=== PATIENT | male | born 1965 | race Caucasian/White ===

== ENCOUNTER 2025-01-28 10:57 | Emergency (ER) | payer BC, SELFPAY ==
--- OUTSIDE RECORDS SUMMARY | 2025-01-28 11:03 | XMS_ITS | Clinical Summary ---
Author Organization [facility] and [facility] Address [address] [place] [address] Care Team Providers Care Animal Scientist Name Role Phone Vilma Edgardo VILLALOBOS Primary Care Provider Unavailabl e Source Comments This information has been disclosed to you from records protected by Federal confidentiality rules (42 CFR part 2). The Federal rules prohibit you from making any further disclosure of this information unless further disclosure is expressly permitted by the written consent of the person to whom it pertains or as otherwise permitted by 42 CFR part 2. A general authorization for the release of medical or other information is NOT sufficient for this purpose. The Federal rules restrict any use of the information to criminally investigate or prosecute any alcohol or drug abuse patient.[facility] Allergies Active Allergy Reactions Criticality Noted Date Comments Raspberry Other High 10/06/2016 Severe hives Medications escitalopram (LEXAPRO) 20mg Tab 05/17/20 20 Active TESTOSTERONE IM Inject intramuscularly once weekly Active Active Problems Problem Noted Date Diagnosed Date Polymyalgia rheumatica 09/06/2020 Positive antinuclear antibody 09/06/2020 Left knee pain 01/19/2018 History of arthrodesis 01/19/2018 BMI 33.0-33.9,adult 01/19/2018 Resolved Problems Problem Noted Date Diagnosed Date Resolved Date Acute bronchitis 07/18/2017 08/23/2020 Right ankle pain 06/28/2012 07/18/2017 Family History Medical History Relation Comments Diabetes type II Father Heart Disease Father Kidney diseases Father Relation Status Comments Father Alive Social History Tobacco Use Types Packs/Day Years Used Date Smoking Tobacco: Never Smokeless Tobacco: Never Tobacco Cessation:Counseling Given: Not Answered Alcohol Use Standard Drinks/Week Comments Yes 0 (1 standard drink = 0.6 oz pur e alcohol) Rare AUDIT-C Answer Date Recorded Frequency of Alcohol Consumption Monthly or less 11/17/2019 Average Number of Drinks 1 or 2 020 Frequency of Binge Drinking Never 11/03 Core Social Determinants of Health Screening Que stions Answer Date Recorded Unable to Pay for Housing in the Last Year Not o n file 03/03/2023 [address] of Places Lived in the Last Year Not on f ile 03/03/2023 Unstable Housing in the Last Year Not on file 03/03/2023 Sex and Gender Information Value Date Recorded Sex Assigned at Not on file Legal Sex Male 10:58 AM PST Gender Identity Not on file Sexual Orientation Not on file Last Filed Vital Signs Vital Sign Reading Time Taken Comments Blood Pressure 113/75 01/06/2024 10:26 AM PDT Pulse 57 01/06/2024 10:26 AM PDT Temperature 36.6 C (97.9 F) 01/06/2024 10:26 AM PDT Respiratory Rate 20 01/06/2024 10:26 AM PDT Oxygen Saturation 100% 01/06/2024 10:26 AM PDT Inhaled Oxygen Concentration - - Weight 99.3 kg (219 lb) 01/06/2024 10:26 AM PDT Height 182.9 cm (6') 09/05/2020 9:16 AM PST Body Mass Index 29.7 09/05/2020 9:16 AM PST Plan of Treatment Health Maintenance Due Date Last Done Comments UNIVERSAL HIV SCREENING 12/29/1985 DTaP,Tdap,or Td Vaccine (1 - Tdap) 12/29/1986 HEPATITIS B VACCINE (1 of 3 - 19+ 3-dose series) 12/29/1986 MMR VACCINE ADULT 12/29/1986 COLORECTAL CANCER SCREENING DISCUSSION 12/29/2012 PNEUMOCOCCAL VACCINE 50+ YEA RS (1 of 1 - PCV) 12/29/2017 ZOSTER VACCINE (Shingrix w/w o Zostavax) (1 of 2) 12/29/2017 COVID-19 Vaccine ( - 2023-2 5 season) 2024 INFLUENZA VACCINE 04/05/2025 LIPID SCREENING 11/11/2027 11/10/2022, 11/15/2019 HEPATITIS C SCREENING Completed 11/10/2022 HEPATITIS A VACCINE Aged Out No longe r eligible based on patient's age to complete this topic HPV VACCINE Aged Out No longer eligi ble based on patient's age to complete this topic MENINGOCOCCAL ACWY VACCINE Aged Out N o longer eligible based on patient's age to complete this topic Insurance [facility] PPO POS EPO [facility] [employer] [id number] [employer] Care Teams Animal Scientist Relationship Specialty Start Date End Date Edgardo Esparza NP Generic PCP - General 05/29/20
--- OUTSIDE RECORDS SUMMARY | 2025-01-28 11:03 | XMS_ITS | Encounter Summary ---
Author Organization [facility] Address [address] [place] [address] Phone Care Team Providers Care Material Spreader Name Role Phone Esperanza Rinocn SONAR WATCHSTANDER Primary Care Provider [phone] Reason for Visit * Reason Comments Med Refill Encounter Details Date Type Department Care Team (Late st Contact Info) Description 10/20/2024 Refill [facility] [employer] [address] [phone] [place] [address] [place] [phone] Social History Tobacco Use Types Packs/Day Years Used Date Smoking Tobacco: Former Smokeless Tobacco: Never Sex and Gender Information Value Date Recorded Sex Assigned at Not on file Legal Sex Male 12:04 PM PDT Gender Identity Not on file Sexual Orientation Not on file documented as of this encounter Plan of Treatment Not on file documented as of this encounter Visit Diagnoses Not on filedocumented in this encounter Care Teams Material Spreader Relationship Specialty Start Date End Date Esperanza Rincon NP [address] [place] [phone] PCP - General Internal Medicine 06/05/20 documented as of this encounter
--- OUTSIDE RECORDS SUMMARY | 2025-01-28 11:03 | XMS_ITS | Continuity of Care Document ---
Author Organization [facility] Address [address] [place] [address] Phone Care Team Providers Care Mica Plate Layer Name Role Phone Esperanza Rincon NP Primary Care Provider [phone] Encounters Date Type Department Care Team Description 10/20/2024 [facility], [facility]. [facility] [employer] [address] [place] [address] [address] [place] [phone] Esperanza Rincon NP 09/21/2024 [facility], [facility]. [employer] [address] [place] [phone] Esperanza Rincon NP 08/21/2024 [facility], [facility]. [employer] [address] [place] [phone] Esperanza Rincon NP 11/05/2022 1:15 PM [facility]. A [employer] [address] [place] [phone] Esperanza Rincon NP Carpal tunnel syndrome, bilateral (Primary Dx); Reactive depression; Need for hepatitis C screening test; Other fatigue; Hypercholesteremia; Prostate cancer screening 11/05/2022 Travel 06/13/2022 [facility], [facility]. A [employer] [address] [place] [phone] Esperanza Rincon NP 05/13/2022 [facility]. A [employer] [address] [place] [phone] Esperanza Rincon NP Pt need advise 03/09/2022 [facility], [facility]. A Medical [address] [place] [phone] Esperanza Rincon NP 12/10/2021 Travel 12/10/2021 3:15 PM [facility] A Medical [address] [place] [phone] Esperanza Rincon NP COVID-19 (Primary Dx); Reactive depression 11/18/2020 [facility], [employer]. Medical [address] [place] [phone] Esperanza Rincon NP 06/27/2020 [facility], [employer]. A Medical [address] [place] [phone] Provider, Historical 06/25/2020 [facility], [employer]. A Medical [address] [place] [phone] Esperanza Rincon NP Need treatment plan 06/22/2020 [facility], [employer]. Medical [address] [place] [phone] Esperanza Rincon NP 06/22/2020 [facility] Medical [address] [place] [phone] Esperanza Rincon NP 06/21/2020 [facility] A Medical [address] [place] [phone] Esperanza Rincon NP 06/21/2020 [facility], [employer]. Medical [address] [place] [phone] Esperanza Rincon NP treatment plan needed 06/19/2020 [facility], [employer]. Medical [address] [place] [phone] Esperanza Rincon NP 06/18/2020 [facility], [employer]. A Medical [address] [place] [phone] Esperanza Rincon NP 06/15/2020 [facility] [employer]. A [address] [place] [phone] Esperanza Rincon NP 06/15/2020 Travel 06/15/2020 10:15 AM PST Office Visit [place] [employer]. [address] [place] [phone] Esperanza Rincon NP Polyarthritis (Primary Dx); BMI 31.0-31.9,adult 06/12/2020 Travel 05/28/2020 Travel 05/25/2020 Travel 11/15/2019 [facility] [employer]. [address] [place] [phone] Esperanza Rincon NP 11/15/2019 Travel 11/15/2019 9:45 AM PDT Office [facility] [employer]. [address] [place] [phone] Esperanza Rincon NP Hypercholesteremia (Primary Dx); Prostate cancer screening; Other fatigue; Impaired glucose tolerance; Umbilical hernia without obstruction and without gangrene; Reactive depression; Colon cancer screening; Right foot pain 11/08/2019 Travel 08/17/2019 [facility] [employer]. A [address] [place] [phone] Mariana Castro MA 02/27/2019 [facility] [employer]. [address] [place] [phone] Joradn Rust MD 01/26/2018 9:30 AM PDT Office [facility] [employer]. [address] [phone] Jordan Rust MD Acute pain of left knee (Primary Dx); Reactive depression 01/25/2018 [facility] [employer]. [address] [place] [phone] Esperanza Rincon NP 01/12/2018 [facility] [employer]. A [employer] [address] [facility] [address] [place] [address] Kenzie Mooney MD 04/06/2017 Procedure Only, [facility] [employer]. [facility] [employer] [address] [place] [address] 03/13/2017 Office Visit, [facility] [employer]. [employer] [address] [facility] [address] [place] [address] Kenzie Mooney MD 12/12/2016 Office Visit, [facility] [employer]. [employer] [address] [facility] [address] [place] [phone] Esperanza Rincon NP Allergies Active Allergy Reactions Criticality Noted Date Comments Dominguezpberry High 10/06/2016 Other reaction(s): Other Severe hives Medications testosterone cypionate (DEPO-TESTOTERON E) 100 mg/mL injection every 14 (fourteen) days. Active escitalopram (LEXAPRO) 20 mg tablet TAKE 1 TABLET(20 MG) BY MOUTH DAILY 30 tablet 09/21/2024 Active Active Problems Problem Noted Date Diagnosed Date Polymyalgia rheumatica 09/06/2020 Positive antinuclear antibody 09/06/2020 Inflammatory polyarthropathy 08/06/202009/2022 Acute pain of left knee 01/26/2018 Assessment & Plan (01/26/2018 12:41 PM PDT): Patient of Dr. Dmitry Mooney Hurt left knee injury in October and workmans comp declined to be involved . He saw orthopedist in [place] and MRI pending. 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 Has to walk up 5-6 steps to [place]man. Kneeling and twisting is involved. Trying to get bye until pain got worse a week ago and now wants to get on disability. Knee feels tight even without wt bearing, Moans and groans at night. Worse with wt bearing medial knee, swells and gets stiff medial knee. Was going through parking lot at [employer] and tripped in the parking lot and twisted his knee and painful since then. Taking ibuprofen 800mg prn with some relief. Here to get disabilty started Advised to file online for state disability and to get disability paper through work and also to get orthopedist involed Reactive depression 01/26/2018 Assessment & Plan (01/26/2018 9:52 AM PDT): Was on lexapro 10mg and seemed to be helping per but out for several months. Did help his anger issues. Wants to restart. Refill 20mg daily History of arthrodesis 01/19/2018 Decreased testosterone level 12/12/2016 Social History Smoking Status as of 01/28/2025 Tobacco Use Types Packs/Day Years Used Date Smoking Tobacco: Never Assessed Sex and Gender Information Value Date Recorded Sex Assigned at Not on file Legal Sex Male 12:04 PM PDT Gender Identity Not on file Sexual Orientation Not on file Last Filed Vital Signs Vital Sign Reading Time Taken Comments Blood Pressure 118/62 06/15/2020 9:41 AM PST Pulse 76 06/15/2020 9:41 AM PST Temperature 36.4 C (97.5 F) 06/15/2020 9:41 AM PST Respiratory Rate - - Oxygen Saturation 97% 06/15/2020 9:41 AM PST Inhaled Oxygen Concentration - - Weight 99.8 kg (220 lb) 06/15/2020 9:41 AM PST Height 177.8 cm (5' 10) 06/15/2020 9:41 AM PST Body Mass Index 31.57 06/15/2020 9:41 AM PST Plan of Treatment Not on file Procedures Procedure Name Priority Date/Time Associated Diagnosis Comments TSH, W RFLX ON ABNORMAL TO FREE T4 Routine 11/10/2022 12:58 PM PDT Reactive depression Other fatigue PSA Routine 11/10/2022 12:58 PM PDT Prostate cancer screening LDL CHOLESTEROL, DIRECT Routine 11/10/2022 12:58 PM PDT Hypercholesteremia LIPID PANEL (NON-FASTING) Routine 11/10/2022 12:58 PM PDT Hypercholesteremia COMPREHENSIVE METABOLIC PANEL (14) Routine 11/10/2022 12:58 PM PDT Hypercholesteremia CBC Routine 11/10/2022 12:58 PM PDT Other fatigue HEPATITIS C AB W RFLX TO HCV RNA, QUANT, PCR Routine 11/10/2022 12:58 PM PDT Need for hepatitis C screening test CHRISTIE TITER AND PATTERN Routine 06/18/2020 10:11 AM PST COMPREHENSIVE METABOLIC PANEL (14) Routine 06/18/2020 10:11 AM PST Polyarthritis CBC (INCLUDES DIFF/PLT) Routine 06/18/2020 10:11 AM PST Polyarthritis CHRISTIE + RF + CCP (IGG) Routine 06/18/2020 10:11 AM PST Polyarthritis LYME DISEASE AB (IGG & IGM), WESTERN BLOT Routine 06/18/2020 10:11 AM PST Polyarthritis C-REACTIVE PROTEIN Routine 06/18/2020 10 :11 AM PST Polyarthritis SEDIMENTATION RATE, AUTOMATED Routine 06/18/2020 10:11 AM PST Polyarthritis CHRISTIE SCREEN W CASCADING RFLX Routine 06/18/2020 10:11 AM PST Polyarthritis URIC ACID Routine 06/18/2020 10:09 AM PST Polyarthritis LAB SCANNED RESULT Routine 06/18/2020 LAB SCANNED RESULT Routine 06/18/2020 LAB SCANNED RESULT Routine 06/18/2020 SARS-COV-2 RNA (COVID-19), QUALITATIVE NAAT Routine 06/15/2020 10:24 AM PST Polyarthritis LAB SCANNED RESULT Routine 06/15/2020 HEMOGLOBIN A1C W MPG Routine 11/15/2019 10:15 AM PDT PSA Routine 11/15/2019 10:15 AM PDT Prostate cancer screening LIPID PANEL (NON-FASTING) Routine 11/15/2019 10:15 AM PDT Hypercholesteremia COMPREHENSIVE METABOLIC PANEL (14) Routine 11/15/2019 10:15 AM PDT Hypercholesteremia CBC Routine 11/15/2019 10:15 AM PDT Other fatigue Results * (ABNORMAL) Lipid Panel (Non-Fasting) (11/10/2022 12:58 PM PDT) Only the most recent of2 resultswithin the time period is included. Cholesterol, Total 252(H) <200 mg/dL [facility] [place] HDL 41 > OR = 40 mg/dL [facility] [place] Chol/HDL Ratio 6.1(H) <5.0 (calc) [facility] [place] Non HDL Chol. (LDL+VLDL) 211(H) <130 mg/dL (calc) [facility] [place] Comment: For patients with diabetes plus 1 major ASCVD risk factor, treating to a non-HDL-C goal of <100 mg/dL (LDL-C of <70 mg/dL) is considered a therapeutic option. 11/10/2022 12:5 8 PM PDT 11/10/2022 12:58 PM PDT Narrative [facility] - 11/11/2022 12:17 PM PDT FASTING:NO FASTING: NO Esperanza Rincon ORTHOTIC/PROSTHETIC PRACTITIONER LAB BLOOD ORDERABLES Final Resul t [facility] [address] [place] [address] * Hepatitis C Ab w rflx to Quant PCR (11/10/2022 12:58 PM PDT) Pathologist [facility] HCV Ab NON-REACTI VE NON-REACT NAOMIE [facility] [place] Hepatitis C Virus Ab Signal To Cut-Off 0.09 <1.00 [facility] [place] [facility] [place] Comment: HCV antibody was non-reactive. There is no laboratory evidence of HCV infection. In most cases, no further action is required. However, if recent HCV exposure is suspected, a test for HCV RNA (test code 72668) is suggested. For additional information please refer to http://Number 100.[employer]/faq/RUZ89y5 (This link is being provided for informational/ educational purposes only.) 11/10/2022 12:5 8 PM PDT 11/10/2022 12:58 PM PDT Narrative [facility] - 11/11/2022 12:17 PM PDT FASTING:NO FASTING: NO Esperanza Rincon LAB BLOOD ORDERABLES Final Resul t Performing Organization Address City/[facility]/ZIP Co de Phone Number [facility] [id number] [phone] * TSH, w rflx to Free T4 (11/10/2022 12:58 PM PDT) Pathologist [facility] TSH 0.89 0.40 - 4.50 mIU/L [facility] 11/10/2022 12:5 8 PM PDT 11/10/2022 12:58 PM PDT Narrative [facility] - 11/11/2022 12:17 PM PDT FASTING:NO FASTING: NO Esperanza Rincon NP LAB BLOOD ORDERABLES Final Resul t Performing Organization Address City/[facility]/ZIP Co de Phone Number [facility] [id number] [phone] * CBC (11/10/2022 12:58 PM PDT) Only the most recent of2 resultswithin the time period is included. WBC 5.5 3.8 - 10.8 Thousand/uL [facility] RBC 5.32 4.20 - 5.80 Million/uL [employer] [facility] Hgb 16.9 13.2 - 17.1 g/dL [facility] [place] Hct 48.9 38.5 - 50.0 % [facility] [place] MCV 91.9 80.0 - 100.0 fL [facility] [place] MCH 31.8 27.0 - 33.0 pg [facility] [place] MCHC 34.6 32.0 - 36.0 g/dL [facility] [place] RDW 12.6 11.0 - 15.0 % [facility] [place] Plt 260 140 - 400 Thousand/uL [facility] [place] MPV 9.2 7.5 - 12.[address] [facility] [place] Blood specimen (specimen) Venous blood specimen / Unknown 11/10/2022 12:58 PM PDT 11/10/2022 12:58 PM PDT [facility] 11/11/2022 12:17 PM PDT FASTING:NO FASTING: NO Esperanza Rincon NP LAB BLOOD ORDERABLES Final Resul t STEPHANIE [facility] [address] [place] [address] * PSA (11/10/2022 12:58 PM PDT) Only the most recent of2 resultswithin the time period is included. PSA 0.53 < OR = 4.00 ng/mL [facility] [place] [facility] [place] Comment: The total PSA value from this assay system is standardized against the WHO standard. The test result will be approximately 20% lower when compared to the equimolar-standardized total PSA (Abdulaziz Franklyn). Comparison of serial PSA results should be interpreted with this fact in mind. This test was performed using the Siemens chemiluminescent method. Values obtained from different assay methods cannot be used interchangeably. PSA levels, regardless of value, should not be interpreted as absolute evidence of the presence or absence of disease. Blood specimen (specimen) Venous blood specimen / Unknown 11/10/2022 12:58 PM PDT 11/10/2022 12:58 PM PDT Narrative [facility] - 11/11/2022 12:17 PM PDT FASTING:NO FASTING: NO Esperanza Rincon LAB BLOOD ORDERABLES Final Resul t Performing Organization Address [facility] Co de Phone Number [facility] [address] [place] [phone] * (ABNORMAL) LDL Cholesterol, Direct (11/10/2022 12:58 PM PDT) LDL Direct 172(H) <100 mg/dL [facility] Comment: Greatly elevated Triglycerides values (>1200 mg/dL) interfere with the dLDL assay. As no Triglycerides testing was ordered, interpret results with caution. Desirable range <100 mg/dL for primary prevention; <70 mg/dL for patients with CHD or diabetic patients with > or = 2 CHD risk factors. Blood specimen (specimen) Venous blood specimen / Unknown 11/10/2022 12:58 PM PDT 11/10/2022 12:58 PM PDT Narrative [facility] - 11/11/2022 12:17 PM PDT FASTING:NO FASTING: NO Esperanza Rincon NP LAB BLOOD ORDERABLES Final Resul t Performing Organization Address [facility] Co de Phone Number [employer] [address] * Comprehensive metabolic panel (11/10/2022 12:58 PM PDT) Only the most recent of3 resultswithin the time period is included. Glucose 83 65 - 139 mg/dL [facility] Comment: Non-fasting reference interval BUN 17 7 - 25 mg/dL [facility] Creatinine, Ser 1.23 0.70 - 1.30 mg/dL [facility] eGFR 70 > OR = 60 mL/min/1. 73m2 [facility] Comment: The eGFR is based on the CKD-EPI 2020 equation. To calculate the new eGFR from a previous Creatinine or Cystatin C result, go to https://www.kidney.org/professionals/ kdoqi/gfr%5Fcalculator BUN/Creatinine Ratio NOT APPLICABLE 6 - 22 (calc) [facility] [place] Sodium 139 135 - 146 mmol/L [facility] [place] Potassium 4.2 3.5 - 5.3 mmol/L [facility] [place] Chloride 103 98 - 110 mmol/L [facility] [place] CO2 28 20 - 32 mmol/L [facility] [place] Calcium 9.9 8.6 - 10.3 mg/dL [facility] [place] [facility] [place] Protein, Total 6.8 6.1 - 8.1 g/dL [facility] [place] Albumin 4.7 3.6 - 5.1 g/dL [facility] [place] Globulin, Total 2.1 1.9 - 3.7 g/dL (calc) [facility] [place] A/G Ratio 2.2 1.0 - 2.5 (calc) [facility] [place] [facility] [place] Total Bilirubin 0.5 0.2 - 1.2 mg/dL [facility] [place] Alk Phos 81 35 - 144 U/L [facility] [place] [facility] [place] AST 22 10 - 35 U/L [facility] [place] ALT (SGPT) 27 9 - 46 U/L [facility] [place] [facility] [place] Blood specimen (specimen) Venous blood specimen / Unknown 11/10/2022 12:58 PM PDT 11/10/2022 12:58 PM PDT Narrative [facility] - 11/11/2022 12:17 PM PDT FASTING:NO FASTING: NO us Esperanza Rincon NP LAB BLOOD ORDERABLES Final Resul t [facility] [employer] [facility] [place] [address] [place] [address] * (ABNORMAL) CHRISTIE + RF + CCP IgG (06/18/2020 10:11 AM PST) CHRSITIE POSITIVE( A) NEGATIVE [facility] Comment: CHRISTIE IFA is a first line screen for detecting the presence of up to approximately 150 autoantibodies in various autoimmune diseases. A positive CHRISTIE IFA result is suggestive of autoimmune disease and reflexes to titer and pattern. Further laboratory testing may be considered if clinically indicated. For additional information, please refer to http://education.Fashionspace/faq/EIN855 (This link is being provided for informational/ educational purposes only.) Rheumatoid Factor <14 <14 IU/mL [facility] CCP IgG <16 UNITS [facility] Comment: Reference Range Negative: <20 Weak Positive: 20-39 Moderate Positive: 40-59 Strong Positive: >59 Interpretation [facility] Comment: A positive CHRISTIE, IFA indicates that one or more antibodies associated with connective tissue disease could be positive. The RF and CCP assays are each 65-70% sensitive for established rheumatoid arthritis. While it is still possible that this patient has rheumatoid arthritis, other connective tissue diseases should be considered. 06/18/2020 10:1 1 AM PST 06/18/2020 10:12 AM PST Esperanza Rincon NP LAB BLOOD ORDERABLES Final Resul t [facility] [address] [place] [address] * (ABNORMAL) CHRISTIE titer and pattern (06/18/2020 10:11 AM PST) CHRISTIE Titer 1 1:40(H) titer [facility] Comment: A low level CHRISTIE titer may be present in pre-clinical autoimmune diseases and normal individuals. Reference Range <1:40 Negative 1:40-1:80 Low Antibody Level >1:80 Elevated Antibody Level CHRISTIE Pattern 1 Nuclear, Dense Fine Speckled(A ) [facility] Comment: Dense fine speckled pattern is seen in normal individuals and rarely associated with systemic lupus erythematosis (SLE), Sjogren's syndrome and systemic sclerosis. AC-2: Dense Fine Speckled International Consensus on CHRISTIE Patterns (https://doi.org/10.1515/tqvg-2919-3584) 06/18/2020 10:1 1 AM PST 06/18/2020 10:12 AM PST Esperanza Rincon NP LAB BLOOD ORDERABLES Final Resul t Performing Organization Address [facility] Co de Phone Number [facility] [address] [place] [address] * CHRISTIE Screen w Cascading Rflx (06/18/2020 10:11 AM PST) CHRISTIE (CHOICE) NEGATIVE NEGATIVE [facility] Comment: A negative CHRISTIE Multiplex, with Reflex to 11 Antibody [place] indicates the absence of detectable antibodies to component analytes consisting of double stranded DNA (dsDNA), chromatin, ribonucleoprotein (MANUFACTURING TECHNOLOGIST), [place]/MANUFACTURING TECHNOLOGIST (Sm/MANUFACTURING TECHNOLOGIST), [place] (Sm), SS-A, SS-B, Adelaida-1, centromere B, Scl-70 and ribosomal P. A negative result should be interpreted in the context of the clinical and laboratory findings and does not rule out autoimmune disease characterized by other autoantibody specificities such as rheumatoid arthritis, autoimmune hepatitis, primary biliary cirrhosis, autoimmune thyroiditis, Raj's disease, pernicious anemia, autoimmune neuropathies, vasculitis, celiac disease, and bullous disease. For additional information, please refer to http://education.Fashionspace/faq/TOR380 (This link is being provided for informational/ educational purposes only.) Blood specimen (specimen) Venous blood specimen / Unknown 06/18/2020 10:11 AM PST 06/18/2020 10:12 AM PST Esperanza Rincon NP LAB BLOOD ORDERABLES Final Resul t Performing Organization Address [facility] Co de Phone Number [facility] [address] [place] [address] * Lyme Disease Ab (IgG & IgM), WB (06/18/2020 10:11 AM PST) Lyme Ab IgG by WB NEGATIVE [facility] Lyme 18 kD IgG NON-REACTIVE [facility] Lyme 23 kD IgG NON-REACTIVE [facility] Lyme 28 kD IgG NON-REACTIVE [facility] Lyme 30 kD IgG NON-REACTIVE [facility] Lyme 39 kD IgG NON-REACTIVE [facility] Lyme 41 kD IgG REACTIVE [facility] Lyme 45 kD IgG NON-REACTIVE [facility] Lyme 58 kD IgG NON-REACTIVE [facility] Lyme 66 kD IgG NON-REACTIVE [facility] Lyme 93 kD IgG NON-REACTIVE [facility] Comment: Lyme Ab IgM by WB NEGATIVE [facility] Lyme 23 kD IgM NON-REACTIVE [facility] Lyme 39 kD IgM REACTIVE [facility] Lyme 41 kD IgM NON-REACTIVE [facility] Comment: REFERENCE RANGE: NEGATIVE Lyme immunoblot testing should only be performed on samples from patients who have had a Positive or Equivocal result in a screening assay. As per CDC criteria, a Lyme disease IgG immunoblot must show reactivity to at least 5 of 10 specific borrelial proteins to be considered positive; similarly, a positive Lyme disease IgM immunoblot requires reactivity to 2 of 3 specific borrelial proteins. Although considered negative, IgG reactivity to fewer specific borrelial proteins or IgM reactivity to only 1 protein may indicate recent B. burgdorferi infection and warrant testing of a later sample. A positive IgM but negative IgG result obtained more than a month after onset of symptoms likely represents a false-positive IgM result rather than acute Lyme disease. In rare instances, Lyme disease immunoblot reactivity may represent antibodies induced by exposure to other spirochetes. Your request to have a duplicate copy faxed has been acknowledged. Queued to: Blood specimen (specimen) Venous blood specimen / Unknown 06/18/2020 10:11 AM PST 06/18/2020 10:12 AM PST Esperanza Rincon NP LAB BLOOD ORDERABLES Final Resul t [facility] [address] [facility] [place] [facility] [place] [address] * Sedimentation Rate, W[place]gren (06/18/2020 10:11 AM PST) ESR, Montserratren 17 < OR = 20 mm/h [facility] [place] Blood specimen (specimen) Venous blood specimen / Unknown 06/18/2020 10:11 AM PST 06/18/2020 10:12 AM PST Esperanza Rincon ORTHOTIC/PROSTHETIC PRACTITIONER LAB BLOOD ORDERABLES Final Resul t [facility] [address] [place] [address] * CBC and diff/platelets (06/18/2020 10:11 AM PST) WBC 9.7 3.8 - 10.8 Thousand/u L [facility] [place] RBC 5.00 4.20 - 5.80 Million/uL [facility] [place] Hgb 15.0 13.2 - 17.1 g/dL [facility] [place] Hct 45.1 38.5 - 50.0 % [facility] [place] MCV 90.2 80.0 - 100.0 fL [facility] [place] MCH 30.0 27.0 - 33.0 pg [facility] [place] MCHC 33.3 32.0 - 36.0 g/dL [facility] [place] RDW 11.5 11.0 - 15.0 % [facility] [place] Plt 349 140 - 400 Thousand/u L [facility] [place] MPV 8.7 7.5 - 12.5 fL [facility] [place] Neutrophil# 6,441 1,500 - 7,800 cells/uL [facility] [place] Lymphocytes Absolute 2,270 850 - 3,900 cells/uL [facility] [place] Monos# 757 200 - 950 cells/uL [facility] [place] Eos# 184 15 - 500 cells/uL [facility] [place] Basos# 49 0 - 200 cells/uL [facility] [place] Neutrophils% 66.4 % [facility] [place] Lymphs% 23.4 % [facility] [place] Monocytes Relative 7.8 % [facility] [place] Eos% 1.9 % [facility] [place] Basos% 0.5 % [facility] [place] Blood specimen (specimen) Venous blood specimen / Unknown 06/18/2020 10:11 AM PST 06/18/2020 10:12 AM PST Esperanza Rincon ORTHOTIC/PROSTHETIC PRACTITIONER LAB BLOOD ORDERABLES Final Resul t [facility] [address] [address] * (ABNORMAL) C-Reactive Protein (06/18/2020 10:11 AM PST) CRP 31.6(H) <8.0 mg/L [facility] Blood specimen (specimen) Venous blood specimen / Unknown 06/18/2020 10:11 AM PST 06/18/2020 10:12 AM PST Esperanza Rincon ORTHOTIC/PROSTHETIC PRACTITIONER LAB BLOOD ORDERABLES Final Resul t [facility] [place] [address] [place] [address] * Uric Acid (06/18/2020 10:09 AM PST) Uric Acid 5.6 4.0 - 8.0 mg/dL [facility] [place] Comment: Therapeutic target for gout patients: <6.0 mg/dL Blood specimen (specimen) Venous blood specimen / Unknown 06/18/2020 10:09 AM PST 06/18/2020 10:10 AM PST Esperanza Lumajosé ORTHOTIC/PROSTHETIC PRACTITIONER LAB BLOOD ORDERABLES Final Resul t [facility] [address] [place] [address] * Lab Scanned Report (06/18/2020) Only the most recent of4 resultswithin the time period is included. Historical Provider LAB BLOOD ORDERABLES Final R esult * SARS-CoV-2 RNA (COVID-19), QUALITATIVE NAAT (06/15/2020 10:24 AM PST) SARS COV 2 RNA NOT DETECTED [facility] Comment: A Not Detected (negative) test result for this test means that SARS-CoV-2 RNA was not present in the specimen above the limit of detection. A negative result does not rule out the possibility of COVID-19 and should not be used as the sole basis for treatment or patient management decisions. If COVID-19 is still suspected, based on exposure history together with other clinical findings, re-testing should be considered in consultation with public health authorities. Laboratory test results should always be considered in the context of clinical observations and epidemiological data in making a final diagnosis and patient management decisions. REFERENCE RANGE: NOT DETECTED Please review the Fact Sheets and FDA authorized labeling available for health care providers and patients using the following websites: https://www.CloudTags.com/home/ Covid-19/HCP/[facility]/fact-sheet https://www.CloudTags.Stylewhile/home/ Covid-19/Patients/[facility]/fact-sheet.html This test has been authorized by the FDA under an Emergency Use Authorization (EUA) for use by authorized laboratories Due to the current public health emergency, [facility] is receiving a high volume of samples from a wide variety of swabs and media for COVID-19 testing. In order to serve patients during this public health crisis, samples from appropriate clinical sources are being tested. Negative test results derived from specimens received in non-commercially manufactured viral collection and transport media, or in media and sample collection kits not yet authorized by FDA for COVID-19 testing should be cautiously evaluated and the patient potentially subjected to extra precautions such as additional clinical monitoring, including collection of an additional specimen. Methodology: Nucleic Acid Amplification Test (NAAT) includes RT-PCR or TMA Additional information about COVID-19 can be found at the [facility] website: www.Burstly.Stylewhile/Covid19 Swab (specimen) 06/15/2020 1 0:24 AM PST 06/16/2020 3:22 AM PST Esperanza Rincon NP LAB BLOOD ORDERABLES Final Resul t [facility] [address] [place] [phone] * Hemoglobin A1c w MPG (11/15/2019 10:15 AM PDT) Hgb A1C 5.0 <5.7 % of total Hgb [facility] Comment: For the purpose of screening for the presence of diabetes: <5.7% Consistent with the absence of diabetes 5.7-6.4% Consistent with increased risk for diabetes (prediabetes) > or =6.5% Consistent with diabetes This assay result is consistent with a decreased risk of diabetes. Currently, no consensus exists regarding use of hemoglobin A1c for diagnosis of diabetes in children. According to [place] Diabetes Association (ADA) guidelines, hemoglobin A1c <7.0% represents optimal control in non- diabetic patients. Different metrics may apply to specific patient populations. Standards of Medical Care in Diabetes(ADA). eAG (mg/dL) 101 mg/dL (calc) [facility] 11/15/2019 10:1 5 AM PDT 11/15/2019 10:16 AM PDT Narrative [facility] - 11/16/2019 6:18 AM PDT FASTING:NO FASTING: NO Resulting Agency Comment Performing Organization Information: Site ID: Name: [facility] Address: [address] [place] [phone] Director: M. Christina Sebastian, M.D., FCAP Esperanza Rincon NP LAB BLOOD ORDERABLES Final Resul t [facility] [address] [address] Visit Diagnoses Diagnosis Start Date Acute pain of left knee 01/26/2018 Reactive depression 01/26/2018 Hypercholesteremia Pure hypercholesterolemia 11/15/2019 Prostate cancer screening Special screening for malignant neoplasm of prostate 11/15/2019 Other fatigue 11/15/2019 Impaired glucose tolerance Impaired glucose tolerance test 11/15/2019 Umbilical hernia without obstruction and without gangrene 11/15/2019 Reactive depression 11/15/2019 Colon cancer screening Special screening for malignant neoplasms, colon 11/15/2019 Right foot pain Pain in soft tissues of limb 11/15/2019 BMI 31.0-31.9,adult 06/15/2020 Polyarthritis Unspecified polyarthropathy or polyarthritis, site unspecified 06/15/2020 COVID-19 12/10/2021 Reactive depression 12/10/2021 Reactive depression 11/05/2022 Need for hepatitis C screening test Special screening examination for other specified viral diseases 11/05/2022 Other fatigue 11/05/2022 Hypercholesteremia Pure hypercholesterolemia 11/05/2022 Prostate cancer screening Special screening for malignant neoplasm of prostate 11/05/2022 Carpal tunnel syndrome, bilateral Carpal tunnel syndrome 11/05/2022 Care Teams Mica Plate Layer Relationship Specialty Start Date End Date Esperanza Rincon NP [address] [address] PCP - General Internal Medicine 06/05/20
--- OUTSIDE RECORDS SUMMARY | 2025-01-28 11:03 | XMS_ITS | Referral Summary ---
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 Phone No, Physician Primary Care Provider [phone] Encounters Date Type Department Care Team Description 01/02/2025 7:13 AM CDT - 01/02/2025 8:47 AM CDT Emergency [facility] Emergency Department [address] [place] [address] Brenton Steve MD Chronic midline low back pain without sciatica (Primary Dx); Shortness of breath Discharge Disposition: Discharge to home or self care 2024 1:23 PM CDT - 2024 4:27 PM CDT Emergency [facility] Emergency Department [address] [place] [id number] Lumbar strain, initial encounter (Primary Dx) Discharge Disposition: Discharge to home or self care from Last 3 Months Allergies No known active allergies Medications loratadine (CLARITIN) 10 mg tablet Take 1 tablet (10 mg total) by mouth daily 20 tablet 5 10/18/19 26 Active oxymetazoline (AFRIN) 0.05 % nasal spray Administer 2 sprays into each nostril 2 (two) times a day 30 mL 5 Active ibuprofen (ADVIL,MOTRIN) 600 mg tablet Take 1 tablet (600 mg total) by mouth every 6 (six) hours as needed for pain 30 tablet 5 Active albuterol HFA (PROVENTIL HFA,VENTOLIN HFA,PROAIR HFA) 90 mcg/actuation inhaler Inhale 2 puffs every 4 (four) hours as needed for wheezing or shortness of breath (Cough) 1 each 5 10/24/19 26 Active pseudoephedrin e (SUDAFED) 30 mg tabletIndicati ons:Nasal Congestion Take 1 tablet (30 mg total) by mouth every 4 (four) hours as needed for congestion 30 tablet 5 Active traMADoL (ULTRAM) 50 mg tabletIndicati ons:Lumbar strain, initial encounter Take 1 tablet (50 mg total) by mouth every 8 (eight) hours as needed for pain P.r.n. pain not relieved by [id number] pain medication. Collaborating physician Devon Duenas MD 15 tablet 5 Active tiZANidine (ZANAFLEX) 4 mg tabletIndicati ons:Lumbar strain, initial encounter Take 1 tablet (4 mg total) by mouth every 8 (eight) hours as needed (Take as directed to relax muscles) Collaborating physician Devon Duenas MD 20 tablet 5 Active Active Problems Problem Noted Date Diagnosed Date Lumbar strain, initial encounter 2024 Social History Tobacco Use Types Packs/Day Years Used Date Smoking Tobacco: Never Assessed Personal Safety Answer Date Recorded Have you ever been in or are you currently in a harmful physical or emotional relationship or is someone making you feel afraid or unsafe? Denies 01/02/2025 Sex and Gender Information Value Date Recorded Sex Assigned at Not on file Legal Sex Male 7:42 AM CDT Gender Identity Not on file Sexual Orientation Not on file Last Filed Vital Signs Vital Sign Reading Time Taken Comments Blood Pressure 130/87 01/02/2025 8:15 AM CDT Pulse 78 01/02/2025 8:15 AM CDT Temperature 37.5 C (99.5 F) 01/02/2025 7:12 AM CDT Respiratory Rate 23 01/02/2025 8:15 AM CDT Oxygen Saturation 94% 01/02/2025 8:15 AM CDT Inhaled Oxygen Concentration - - Weight 99.8 kg (220 lb) 2024 12:38 PM CDT Height 182.9 cm (6') 01/02/2025 7:12 AM CDT Body Mass Index 29.84 2024 12:38 PM CDT Plan of Treatment Not on file Procedures Procedure Name Priority Date/Time Associated Diagnosis Comments XR CHEST 1 VIEW ED 01/02/2025 7:54 AM CDT ECG 12-LEAD STAT 01/02/2025 7:43 AM CDT EGFR STAT 01/02/2025 7:31 AM CDT DIFFERENTIAL AUTO STAT 01/02/2025 7:3 1 AM CDT TROPONIN T HIGH-SENSITIVITY SERIES (BASELINE, 2HR, 4HR, 6HR) STAT 01/02/2025 7:31 AM CDT COMPREHENSIVE METABOLIC PANEL STAT 01/02/2025 7:31 AM CDT CBC WITH AUTO DIFFERENTIAL STAT 01/02/2025 7:[address] KUB STONE WO CONTRAST ED 2024 3:17 PM CDT URINALYSIS AND REFLEX TO MICROSCOPIC AND CULTURE STAT 2024 2:34 PM CDT from Last 3 Months Results * XR Chest 1 View (01/02/2025 7:54 AM CDT) Anatomical Region Laterality Modality Body, Chest N/A Computed Radiogr aphy 01/02/2025 8:01 AM CDT Narrative 01/02/2025 8:02 AM CDT EXAM DESCRIPTION: XR CHEST 1 VIEW REASON FOR STUDY: dyspnea, c/f pna Dyspnea Pt ambulatory to triage for back pain since October. Pt states he was seen here had a scan and told he had degenerative changed but now the pain is worse. TECHNIQUE: AP radiographic view(s) of the chest. COMPARISON: 10/23/2024 FINDINGS: LUNGS: There is no discrete consolidation present within either lung. There is no effusion or pneumothorax. HEART/MEDIASTINUM: Cardiac silhouette normal in size. Mediastinal and hilar contours appear normal. LINES/TUBES: None. BONES: No acute osseous abnormality. IMPRESSION: No acute cardiopulmonary abnormality. THIS IS AN ELECTRONICALLY VERIFIED FINAL REPORT 01/02/2025 8:02 AM - Electronically signed by Flakita Purcell M.D. TW: Report ID: [id number] Reading Location: [id number] Procedure Note Flakita Purcell MD - 01/02/2025 EXAM DESCRIPTION: XR CHEST 1 VIEW REASON FOR STUDY: dyspnea, c/f pna Dyspnea Pt ambulatory to triage for back pain since October. Pt states hewas seen here had a scan and told he had degenerative changed but now the painis worse. TECHNIQUE: AP radiographic view(s) of the chest. COMPARISON: 10/23/2024 FINDINGS: LUNGS: There is no discrete consolidation present within either lung.There is no effusion or pneumothorax. HEART/MEDIASTINUM: Cardiac silhouette normal in size. Mediastinal andhilar contours appear normal. LINES/TUBES: None. BONES: No acute osseous abnormality. IMPRESSION: No acute cardiopulmonary abnormality. THIS IS AN ELECTRONICALLY VERIFIED FINAL REPORT 01/02/2025 8:02 AM - Electronically signed by Flakita Purcell M.D. TW: Report ID: [id number] Reading Location: [id number] us Brenton Steve MD IMG XR PROCEDURES F inal Result * ECG 12 lead (01/02/2025 7:43 AM CDT) 01/02/2025 7:43 AM CDT Narrative [facility] - 01/02/2025 12:21 PM CDT Vent Rate: 78 bpm RR Interval: 767 msec WA Interval: 147 msec QRS Duration: 96 msec QT Interval: 342 msec QTC Interval: 375 msec P-R-T Norman: 47 - 29 - 30 degrees IMPRESSION: SINUS RHYTHM NORMAL ECG Electronically Signed By: Elvin Britton MD us Brenton Steve MD ECG ORDERABLES Fin al Result [facility] * Troponin T high-sensitivity series (baseline, 2hr, 4hr, 6hr) (01/02/2025 7:31 AM CDT) Trop T hs <6 <=22 ng/L Comment: Interpretive Data For further hscTnT resources including the diagnostic algorithm and an aid in interpretation, copy and paste this link: https://nrl.testcatalog.org/show/hsTrop Current Interpretive Data last revised 2020. Blood 01/02/2025 7:31 AM CDT 01/02/2025 7:41 AM CDT us Brenton Steve MD LAB BLOOD ORDERABLE S Final Result [facility] ([address] Department [place] [address] * eGFR (01/02/2025 7:31 AM CDT) eGFR 88 >=60 mL/min/1. 73 m2 Comment: Interpretive Data Reference Interval Normal >/= 90 mL/min/1.73m2 Mildly decreased* 60 - 89 mL/min/1.73m2 Mildly to moderately decreased 45 - 59 mL/min/1.73m2 Moderately to severely decreased 30 - 44 mL/min/1.73m2 Severely decreased 15 - 29 mL/min/1.73m2 Kidney Failure < 15 mL/min/1.73m2 *Relative to young adult level Estimated glomerular filtration rate is determined by the 2020 CKD-EPI equation recommended by the National Kid[employer] (A Unifying Approach to GFR Estimation: Recommendations of the NKF-ASK Task Force on Reassessing the Inclusion of Race in Diagnosing Kidney Disease, JASN 2020). The CKD-EPI equation should not be used for patients with unstable renal function and has not been validated in children and those over 70. Current interpretive data was last reviewed 2021. Blood 01/02/2025 7:31 AM CDT 01/02/2025 7:41 AM CDT us Brenton Steve MD LAB BLOOD ORDERABLE S Final Result [facility] ([place]) 1 [facility] Department [place] [address] * Differential, auto (01/02/2025 7:31 AM CDT) Neutrophil abs 3.78 1.50 - 6.50 K/cumm Imm gran abs 0.02 0.00 - 0.10 K/cumm [facility] ([place]) Lymphocyte abs 1.00 0.80 - 3.30 K/cumm [facility] ([place]) Monocyte abs 0.45 0.20 - 0.80 K/cumm [facility] ([place]) Eosinophil abs 0.01 0.00 - 0.50 K/cumm [facility] ([place]) Basophil abs 0.03 0.00 - 0.10 K/cumm [facility] ([place]) Neutrophil pct 71.4 % [facility] ([place]) Comment: Interpretive Data Percent cell count reference ranges are not reported, since discordance with absolute values may lead to misinterpretation of CBC data. Current Interpretive Data was last revised on 2017. Imm gran pct 0.4 % [facility] ([place]) Comment: Interpretive Data Percent cell count reference ranges are not reported, since discordance with absolute values may lead to misinterpretation of CBC data. Current Interpretive Data was last revised on 2017. Lymphocyte pct 18.9 % [facility] ([place]) Comment: Interpretive Data Percent cell count reference ranges are not reported, since discordance with absolute values may lead to misinterpretation of CBC data. Current Interpretive Data was last revised on 2017. Monocyte pct 8.5 % [facility] ([place]) Comment: Interpretive Data Percent cell count reference ranges are not reported, since discordance with absolute values may lead to misinterpretation of CBC data. Current Interpretive Data was last revised on 2017. Eosinophil pct 0.2 % [facility] ([place]) Comment: Interpretive Data Percent cell count reference ranges are not reported, since discordance with absolute values may lead to misinterpretation of CBC data. Current Interpretive Data was last revised on 2017. Basophil pct 0.6 % [facility] ([place]) Comment: Interpretive Data Percent cell count reference ranges are not reported, since discordance with absolute values may lead to misinterpretation of CBC data. Current Interpretive Data was last revised on 2017. Blood 01/02/2025 7:31 AM CDT 01/02/2025 7:41 AM CDT us Brenton Steve MD LAB BLOOD ORDERABLE S Final Result [facility] ([place]) [address] [facility] Department [place] [address] * (ABNORMAL) CBC with auto differential (01/02/2025 7:31 AM CDT) WBC 5.29 3.80 - 9.90 K/cumm Hgb 16.8 13.0 - 17.5 g/dL [facility] ([place]) Hct 47.0 38.9 - 50.3 % [facility] ([place]) Plt 241 150 - 400 K/cumm [facility] ([place]) MPV 8.8(L) 9.1 - 12.3 fL [facility] ([place]) RBC 5.29 4.30 - 5.80 M/cumm [facility] ([place]) MCV 88.8 81.3 - 96.4 fL [facility] ([place]) MCH 31.8 27.1 - 33.3 pg [facility] ([place]) MCHC 35.7 32.3 - 35.7 g/dL [facility] ([place]) RDW CV 12.4 11.1 - 14.9 % [facility] ([place]) RDW SD 40.6 35.7 - 48.1 fL [facility] ([place]) NRBC abs 0.00 0.00 - 0.01 K/cumm [facility] ([place]) Blood 01/02/2025 7:31 AM CDT 01/02/2025 7:41 AM CDT us Brenton Steve MD LAB BLOOD ORDERABLE S Final Result [facility] ([place]) [address] [facility] Department [place] [address] * (ABNORMAL) Comprehensive metabolic panel (01/02/2025 7:31 AM CDT) Sodium 137 135 - 145 mmol/L Potassium, pl 3.8 3.3 - 4.9 mmol/L [facility] ([place]) Chloride 104 97 - 110 mmol/L [facility] ([place]) CO2 20(L) 22 - 32 mmol/L [facility] ([place]) Anion gap 12 2 - 15 mmol/L [facility] ([place]) BUN 8 6 - 25 mg/dL [facility] ([place]) Creatinine 1.00 0.80 - 1.30 mg/dL [facility] ([place]) Glucose 165 70 - 199 mg/dL [facility] ([place]) Comment: Interpretive Data Fasting glucose >/= 126 mg/dl is diagnostic for diabetes. Fasting is defined as no caloric intake for at least 8 hours. Fasting glucose between 100 mg/dl to 125 mg/dl is diagnostic of prediabetes. In a patient with classic symptoms of hyperglycemia or hyperglycemic crisis, a random glucose >/= 200 mg/dl is diagnostic for diabetes. In the absence of unequivocal hyperglycemia, results should be confirmed by repeat testing. The classification and Diagnosis of Diabetes Diabetes Care 2021; 46: S19-S40. Current interpretive data was last revised 2022. Calcium 9.3 8.5 - 10.3 mg/dL [facility] ([place]) Bilirubin, total 0.5 0.1 - 1.2 mg/dL [facility] ([place]) Protein, pl 6.8 6.5 - 8.5 g/dL [facility] ([place]) Albumin 4.2 3.5 - 5.0 g/dL [facility] ([place]) Alk phos 75 40 - 130 Units/L [facility] ([place]) ALT 18 7 - 55 Units/L [facility] ([place]) AST 20 10 - 50 Units/L [facility] ([place]) Blood 01/02/2025 7:31 AM CDT 01/02/2025 7:41 AM CDT us Brenton Steve MD LAB BLOOD ORDERABLE S Final Result [facility] [place]) [address] [facility] Department [place] [address] * CT KUB Stone WO Contrast (2024 3:17 PM CDT) Anatomical Region Laterality Modality Abdomen N/A Computed Tomogra phy 2024 3:33 PM CDT Narrative 2024 3:40 PM CDT EXAM DESCRIPTION: CT KUB STONE WO CONTRAST REASON FOR STUDY: Low back pain radiating across lower abdomen Back pain for 1 month TECHNIQUE: CT scan of the abdomen and pelvis performed without intravenous and without oral contrast using helical scanning technique. Reconstructed coronal and sagittal MPR images reviewed. All images stored on PACS. Automated exposure control was used as a dose optimization technique for this examination. COMPARISON: No prior studies are available for comparison at time of this dictation. FINDINGS: The sensitivity for detection of visceral lesions is diminished without the use of intravenous contrast. LOWER CHEST: No significant pulmonary abnormalities. No effusion. LIVER: Normal size. Unremarkable for noncontrast technique. GALLBLADDER: No stones identified. No wall thickening or inflammatory changes. BILE DUCTS: No intrahepatic or extrahepatic ductal dilatation. SPLEEN: Normal size. No focal lesions. PANCREAS: Unremarkable for noncontrast technique. ADRENALS: Normal. KIDNEYS/URINARY TRACT: There is a left subcentimeter hemorrhagic cyst. No nephrolithiasis. Hydronephrosis or hydroureter. Urinary bladder is unremarkable. GI: No dilated bowel loops. No obvious wall thickening. Normal appendix. No significant diverticular disease. PERITONEUM: No ascites or free air. RETROPERITONEUM: No mass or adenopathy. REPRODUCTIVE: No significant abnormality. VASCULATURE: Mild atherosclerotic calcification of the aorta. MUSCULOSKELETAL: Mild degenerative changes of the lumbar spine are noted. Acute process. OTHER: Trace right inguinal hernia. Trace umbilical hiatal hernia. IMPRESSION: No acute process in the abdomen or pelvis. THIS IS AN ELECTRONICALLY VERIFIED FINAL REPORT 2024 3:40 PM - Electronically signed by Amrit Crow M.D. MM: MM Report ID: [id number] Reading Location: [id number] Procedure Note Amrit Crow MD - 2024 EXAM DESCRIPTION: CT KUB STONE WO CONTRAST REASON FOR STUDY: Low back pain radiating across lower abdomen Back pain for 1 month TECHNIQUE: CT scan of the abdomen and pelvis performed without intravenousand without oral contrast using helical scanning technique. Reconstructed coronal and sagittal MPR images reviewed. All images stored on PACS.Automated exposure control was used as a dose optimization technique for this examination. COMPARISON: No prior studies are available for comparison at time of this dictation. FINDINGS: The sensitivity for detection of visceral lesions is diminished withoutthe use of intravenous contrast. LOWER CHEST: No significant pulmonary abnormalities. No effusion. LIVER: Normal size. Unremarkable for noncontrast technique. GALLBLADDER: No stones identified. No wall thickening or inflammatory changes. BILE DUCTS: No intrahepatic or extrahepatic ductal dilatation. SPLEEN: Normal size. No focal lesions. PANCREAS: Unremarkable for noncontrast technique. ADRENALS: Normal. KIDNEYS/URINARY TRACT: There is a left subcentimeter hemorrhagic cyst.No nephrolithiasis. Hydronephrosis or hydroureter. Urinary bladder is unremarkable. GI: No dilated bowel loops. No obvious wall thickening. Normalappendix. No significant diverticular disease. PERITONEUM: No ascites or free air. RETROPERITONEUM: No mass or adenopathy. REPRODUCTIVE: No significant abnormality. VASCULATURE: Mild atherosclerotic calcification of the aorta. MUSCULOSKELETAL: Mild degenerative changes of the lumbar spine arenoted. Acute process. OTHER: Trace right inguinal hernia. Trace umbilical hiatal hernia. IMPRESSION: No acute process in the abdomen or pelvis. THIS IS AN ELECTRONICALLY VERIFIED FINAL REPORT 2024 3:40 PM - Electronically signed by Amrit Crow M.D. MM: MM Report ID: [id number] Reading Location: [place] [address] [facility] CT PROCEDURES Final Resu lt * (ABNORMAL) Urinalysis reflex to microscopic and culture Urine (2024 2:34 PM CDT) Color, ur Yellow Yellow Clarity, ur Turbid(A) Clear [facility] ([place]) Specific gravity, ur 1.019 1.003 - 1.030 [facility] ([place]) pH, urine 6.5 [facility] ([place]) Comment: Interpretive Data U rine pH is affected by diet, medications, systemic acid-base disturbances, and renal tubular function. pH may affect urinary stone formation. For example, urine pH below 6.0 may help reduce the tendency for calcium phosphate stones and pH greater than 6.0 may reduce the tendency for uric acid stone formation. Source: [facility] [place] Current Interpretive Data was last revised on 2017 Protein, ur ql Negative Negative [facility] ([place]) Glucose, ur ql Negative Negative [facility] ([place]) Ketones, ur Negative Negative [facility] ([place]) Bilirubin, ur Negative Negative [facility] ([place]) Blood, ur Negative Negative [facility] ([place]) Urobilinogen, ur 4.0(A) <2.0 mg/dL [facility] ([place]) Nitrite, ur Negative Negative [facility] ([place]) Leukocyte esterase, ur Negative Negative [facility] ([place]) UA reflex comment Reflex conditions for microscopic UA and culture not met. 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
--- OUTSIDE RECORDS SUMMARY | 2025-01-28 11:03 | XMS_ITS | Continuity of Care Document ---
Author Name [facility] Care Team Providers Care It Business Systems Analyst Name Role Phone [facility] Unavailable Unavailable Results Order Name Results Value Reference Range Date Interpretation Comments Source AutoDiff* Auto Neutrophil Percent 61.5 % 40.0 - 77.0 02/01 NA [facility] AutoDiff* Auto Neutrophil Absolute 4.80 K/uL 1.80 - 7.70 02/01 NA [facility] AutoDiff* Auto Lymphocyte Percent 25.3 % 15.0 - 47.0 02/01 NA [facility] AutoDiff* Auto Lymphocyte Absolute 2.00 K/uL 1.00 - 4.80 02/01 NA [facility] AutoDiff* Auto Monocyte Percent 10.7 % 3.0 - 12.0 02/01 NA [facility] AutoDiff* Auto Monocyte Absolute 0.80 K/uL 0.20 - 0.80 02/01 NA [facility] AutoDiff* Auto Eosinophil Percent 1.9 % 0.0 - 6.0 02/01 NA [facility] AutoDiff* Auto Eosinophil Absolute 0.10 K/uL 0.00 - 1.90 02/01 NA [facility] AutoDiff* Auto Basophil Percent 0.7 % 0.0 - 1.0 02/01 NA [facility] AutoDiff* Auto Basophil Absolute 0.10 K/uL 0.00 - 0.10 02/01 NA [facility] AutoDiff* Auto NRBC % 0 % 0 - 0 02/01 NA [facility] CBC WBC 7.9 K/uL 3.5 - 10.0 02/01 NA [facility] CBC RBC 5.77 M/uL 4.00 - 5.60 02/01 H [facility] CBC HGB 18.2 gm/dL 12.7 - 16.6 02/01 H [facility] CBC HCT 53.4 % 42.0 - 52.0 02/01 H [facility] CBC MCV 92.6 fL 82.0 - 96.0 02/01 NA [facility] CBC MCH 31.6 pg 28.0 - 34.0 02/01 NA [facility] CBC MCHC 34.1 gm/dL 32.0 - 36.0 02/01 NA [facility] CBC RDW 13.4 % 11.5 - 15.0 02/01 NA [facility] CBC PLT 265 K/uL 150 - 450 02/01 NA [facility] CBC MPV 7.4 fL 7.0 - 11.0 02/01 NA [facility] CMP Sodium Level 137 mmol/L 134 - 145 02/01 NA [facility] CMP Potassium Level 4.3 mmol/L 3.4 - 5.0 02/01 NA [facility] CMP Chloride Level 104 mmol/L 101 - 111 02/01 NA [facility] CMP CO2/Carbon Dioxide 25 mmol/L 22 - 32 02/01 NA [facility] CMP Anion Gap 8 mmol/L 02/01 NA [facility] CMP Glucose, Random 92 mg/dL 70 - 140 02/01 NA [facility] CMP BUN 16 mg/dL 4 - 20 02/01 NA [facility] CMP Creatinine 1.2 mg/dL 0.7 - 1.3 02/01 NA [facility] CMP BUN/Creat Ratio 13 12 - 20 02/01 NA [facility] CMP Osmolality, Calculated 285 mOsm/k g 278 - 298 02/01 NA [facility] CMP Calcium Level 9.8 mg/dL 8.3 - 10.3 02/01 NA [facility] CMP Total Protein 7.5 gm/dL 6.1 - 8.3 02/01 NA [facility] CMP Albumin Level 4.9 gm/dL 3.5 - 5.3 02/01 NA [facility] CMP Globulin Level 2.6 gm/dL 2.3 - 3.5 02/01 NA [facility] CMP A/G Ratio 1.9 0.7 - 2.2 02/01 NA [facility] CMP ALP 78 IntUni t/L 32 - 126 02/01 NA [facility] CMP ALT 23 IntUni t/L 7 - 52 02/01 NA [facility] CMP AST 21 IntUni t/L 10 - 39 02/01 NA [facility] CMP Bilirubin, Total 0.7 mg/dL 0.3 - 1.2 02/01 NA [facility] CMP GFR - Non >60 mL/min /1.73m 2 02/01 NA GFR STANDARDIZED FOR IDKY REFERENCE METHODS. SEE www.nkdep.nih .gov FOR INFO AND CALCULATOR. [facility] CMP GFR - >60 mL/min /1.73m 2 02/01 NA [facility] CRP CRP C-Reactive Protein <0.200 mg/dL 0.000 - 0.747 02/01 NA [facility] ESRWesAuto Sedimentation Rate, Westergren, Auto 6 mm/hr 0 - 15 02/01 NA [facility] AutoDiff* Auto Neutrophil Percent 80.1 % 40.0 - 77.0 10/19 H [facility] AutoDiff* Auto Neutrophil Absolute 7.90 K/uL 1.80 - 7.70 10/19 H [facility] AutoDiff* Auto Lymphocyte Percent 13.4 % 15.0 - 47.0 10/19 L [facility] AutoDiff* Auto Lymphocyte Absolute 1.30 K/uL 1.00 - 4.80 10/19 NA [facility] AutoDiff* Auto Monocyte Percent 5.5 % 3.0 - 12.0 10/19 NA [facility] AutoDiff* Auto Monocyte Absolute 0.50 K/uL 0.20 - 0.80 10/19 NA [facility] AutoDiff* Auto Eosinophil Percent 0.4 % 0.0 - 6.0 10/19 NA [facility] AutoDiff* Auto Eosinophil Absolute 0.00 K/uL 0.00 - 1.90 10/19 NA [facility] AutoDiff* Auto Basophil Percent 0.6 % 0.0 - 1.0 10/19 NA [facility] AutoDiff* Auto Basophil Absolute 0.10 K/uL 0.00 - 0.10 10/19 NA [facility] AutoDiff* Auto NRBC % 0 % 0 - 0 10/19 NA [facility] CBC WBC 9.9 K/uL 3.5 - 10.0 10/19 NA [facility] CBC RBC 5.50 M/uL 4.00 - 5.60 10/19 NA [facility] CBC HGB 17.3 gm/dL 12.7 - 16.6 10/19 H [facility] CBC HCT 49.5 % 42.0 - 52.0 10/19 NA [facility] CBC MCV 90.0 fL 82.0 - 96.0 10/19 NA [facility] CBC MCH 31.4 pg 28.0 - 34.0 10/19 NA [facility] CBC MCHC 34.9 gm/dL 32.0 - 36.0 10/19 NA [facility] CBC RDW 14.7 % 11.5 - 15.0 10/19 NA [facility] CBC PLT 295 K/uL 150 - 450 10/19 NA [facility] CBC MPV 7.5 fL 7.0 - 11.0 10/19 NA [facility] CMP Sodium Level 137 mmol/L 134 - 145 10/19 NA [facility] CMP Potassium Level 4.6 mmol/L 3.4 - 5.0 10/19 NA [facility] CMP Chloride Level 104 mmol/L 101 - 111 10/19 NA [facility] CMP CO2/Carbon Dioxide 26 mmol/L 22 - 32 10/19 NA [facility] CMP Anion Gap 7 mmol/L 10/19 NA [facility] CMP Glucose, Random 121 mg/dL 70 - 140 10/19 NA [facility] CMP BUN 16 mg/dL 4 - 20 10/19 NA [facility] CMP Creatinine 1.0 mg/dL 0.7 - 1.3 10/19 NA [facility] CMP BUN/Creat Ratio 16 12 - 20 10/19 NA [facility] CMP Osmolality, Calculated 286 mOsm/k g 278 - 298 10/19 NA [facility] CMP Calcium Level 9.5 mg/dL 8.3 - 10.3 10/19 NA [facility] CMP Total Protein 7.0 gm/dL 6.1 - 8.3 10/19 NA [facility] CMP Albumin Level 4.6 gm/dL 3.5 - 5.3 10/19 NA [facility] CMP Globulin Level 2.4 gm/dL 2.3 - 3.5 10/19 NA [facility] CMP A/G Ratio 1.9 0.7 - 2.2 10/19 NA [facility] CMP ALP 74 IntUni t/L 32 - 126 10/19 NA [facility] CMP ALT 18 IntUni t/L 7 - 52 10/19 NA [facility] CMP AST 19 IntUni t/L 10 - 39 10/19 NA [facility] CMP Bilirubin, Total 0.9 mg/dL 0.3 - 1.2 10/19 NA [facility] CMP GFR - Non >60 mL/min /1.73m 2 10/19 NA GFR STANDARDIZED FOR IDKY REFERENCE METHODS. SEE www.nkdep.nih .gov FOR INFO AND CALCULATOR. [facility] CMP GFR - >60 mL/min /1.73m 2 10/19 NA [facility] CRP CRP C-Reactive Protein 0.220 mg/dL 0.000 - 0.747 10/19 NA [facility] ESRWesAuto Sedimentation Rate, Westergren, Auto 6 mm/hr 0 - 15 10/19 NA [facility] Encounters Location Location Details Encounter Type Encounter Number Reason For Visit Attending Provider ADM Date DC Date Status Source [facility] Outpatient [id number] L30.9 M06.4 M25.512 M25.571 M75.42 Angel Cintron 10/19 Active [facility] Outpatient [id number] L30.9 M06.4 M25.512 M25.571 M35.3 M75.02 M75.42 [id number] S Angel Cintron 02/01 Active [facility] Procedures Procedure Code Date Perfomer Comments Source ROUTINE VENIPUNCTURE [id number] 10/19/2020 28 [facility] Social History Social History Date Source Social History TypeResponse 10/20/2020 28 [facility]
--- OUTSIDE RECORDS SUMMARY | 2025-01-28 11:03 | XMS_ITS | Encounter Summary ---
Author Organization [facility] Address [address] [place] [address] Phone Care Team Providers Care Hairspring Fabrication Supervisor Name Role Phone Esperanza Rincon HAND SIZER Primary Care Provider [phone] Encounter Details Date Type Department Care Team (Late st Contact Info) Description 01/12/2018 Conversion Encounter [employer] [address] [facility] [place] [address] Kenzie Mooney MD [address] [facility] [address] [place] [address] Social History Tobacco Use Types Packs/Day Years [...] on filedocumented in this encounter Care Teams Hairspring Fabrication Supervisor Relationship Specialty Start Date End Date Esperanza Rincon NP [address] [facility] [address] [place] [address] PCP - General Internal Medicine 06/05/20 documented as of this encounter
--- OUTSIDE RECORDS SUMMARY | 2025-01-28 11:03 | XMS_ITS | Encounter Summary ---
Author Organization [facility] Address [address] [place] [address] Phone Care Team Providers Care Skein Bander Name Role Phone Esperanza Rincon [employer] Primary Care Provider [phone] Encounter Details Date Type Department Care Team ([facility] st Contact Info) Description 06/27/2020 Orders Only [employer] [address] [place] [id number] Provider, [address] [address] Social History Tobacco Use Types Packs/Day Years Used Date Smoking Tobacco: Former Smokeless Tobacco: Never Sex and Gender Information Value Date Recorded Sex Assigned at Not on file Legal Sex Male 12:04 PM PDT Gender Identity Not on file Sexual Orientation Not on file COVID-19 Exposure Response Date Recorded In the last month, have you been in contact with someone who was confirmed or suspected to have Coronavirus / COVID-19? No / Unsure 06/15/2020 9:37 AM PST documented as of this encounter Plan of Treatment Not on file documented as of this encounter Procedures Procedure Name Priority Date/Time Associated Diagnosis Comments LAB SCANNED RESULT Routine 06/18/2020 documented in this encounter Results * Lab Scanned Report (06/18/2020) Historical Provider LAB BLOOD ORDERABLES Final R esult documented in this encounter Visit Diagnoses Not on filedocumented in this encounter Care Teams Skein Bander Relationship Specialty Start Date End Date Esperanza Rincon, [employer] NPI: [id number] [place] [phone] PCP - General Internal Medicine 06/05/20 documented as of this encounter
--- OUTSIDE RECORDS SUMMARY | 2025-01-28 11:03 | XMS_ITS | Encounter Summary ---
Author Organization [facility] Address [address] [place] [address] Phone Care Team Providers Care Sale Professional Digital Marketing Name Role Phone Esperanza Rincon NP Primary Care Provider [phone] Reason for Visit * Reason Comments Med Refill Encounter Details Date Type Department Care Team ([facility] st Contact Info) Description 02/27/2019 Refill [employer] [address] [facility] [address] [place] [phone] Jordan Rust MD Social History Tobacco Use Types Packs/Day Years Used Date Smoking Tobacco: Former Smokeless Tobacco: Never Sex and Gender Information Value Date Recorded Sex Assigned at Not on file Legal Sex Male 12:04 PM PDT Gender Identity Not on file Sexual Orientation Not on file documented as of this encounter Miscellaneous Notes * Telephone Encounter - Mariana Castro MA - 03/02/2019 9:42 AM PDT Fax refill documented in this encounter Plan of Treatment Not on file documented as of this encounter Visit Diagnoses Not on filedocumented in this encounter Care Teams Sale Professional Digital Marketing Relationship Specialty Start Date End Date Esperanza Rincon NP [address] [facility] [address] [place] [phone] PCP - General Internal Medicine 06/05/20 documented as of this encounter
--- OUTSIDE RECORDS SUMMARY | 2025-01-28 11:03 | XMS_ITS | Encounter Summary ---
Author Organization [facility] Address [address] [place] [address] Phone Care Team Providers Care Freelance Translator Name Role Phone Esperanza Rincon RECOVERY ASSISTANT Primary Care Provider Reason for Visit * Reason Onset Date Comments Med Refill 08/17/2019 Encounter Details Date Type Department Care Team (Late st Contact Info) Description 08/17/2019 Refill [facility] [address] [facility] [address] [place] [address] Mariana Castro MA Social History Tobacco Use Types Packs/Day Years Used Date Smoking Tobacco: Former Smokeless Tobacco: Never Sex and Gender Information Value Date Recorded Sex Assigned at Not on file Legal Sex Male 12:04 PM PDT Gender Identity Not on file Sexual Orientation Not on file documented as of this encounter Miscellaneous Notes * Telephone Encounter - Mariana Castro MA - 08/17/2019 11:31 AM PST Fax refill documented in this encounter Plan of Treatment Not on file documented as of this encounter Visit Diagnoses Not on filedocumented in this encounter Care Teams Freelance Translator Relationship Specialty Start Date End Date Esperanza Rincon NP [address] [facility] [address] [place] [phone] PCP - General Internal Medicine 06/05/20 documented as of this encounter
--- OUTSIDE RECORDS SUMMARY | 2025-01-28 11:03 | XMS_ITS | Clinical Summary ---
Author Organization [facility] Address [address] [place] [address] Care Team Providers Care Religion Professor Name Role Phone No, Physician Primary Care Provider [phone] Allergies No known active allergies Medications loratadine [...] for pain P.r.n. pain not relieved by [id number]-ycl-[id number] pain medication. Collaborating physician Devon Duenas MD 15 tablet 5 Active tiZANidine (ZANAFLEX) 4 mg tabletIndicati ons:Lumbar strain, initial encounter Take 1 tablet (4 mg total) by mouth every 8 (eight) hours as needed (Take as directed to relax muscles) Collaborating physician Devon Duenas MD 20 tablet Active Active Problems Problem Noted Date Diagnosed Date Lumbar strain, initial encounter 2024 Encounters Date Type Department Care Team Description 01/02/2025 7:13 AM CDT - 01/02/2025 8:47 AM CDT Emergency [facility] Emergency Department [address] [place] [address] Brenton Steve MD Chronic midline low back pain without sciatica (Primary Dx); Shortness of breath Discharge Disposition: Discharge to home or self care 2024 1:23 PM CDT - 2024 4:27 PM CDT Emergency [facility] Emergency Department [address] [place] [phone] Lumbar strain, initial encounter (Primary Dx) Discharge Disposition: Discharge to home or self care from Last 3 Months Social History Tobacco Use Types Packs/Day Years [...] on file Sexual Orientation Not on file Obstetrics History Last Filed Vital Signs Vital Sign Reading [...] 2024 12:38 PM CDT Plan of Treatment Health Maintenance Due Date Last Done Comments Colon Cancer Screening-Colonoscopy 1967 Depression Screening 1967 Hepatitis C Screening 1965 Prostate Cancer Screening-PSA 1967 DTaP/Tdap/Td Vaccine (1 - Tdap) 12/29/1978 Hepatitis B Screening 12/29/1985 Regular Well Visit/Exam 18-64 12/29/1985 Zoster Vaccine (1 of 2) 12/29/2017 Influenza Vaccine (#1) 2025 Pneumococcal vaccine <65 Aged Out No longer eligible based on patient's age to complete this topic Procedures Procedure Name Priority Date/Time Associated Diagnosis [...] by Flakita Purcell M.D. TW: Report ID: [id number] Reading Location: [id number] Procedure Note Flakita Purcell MD - 01/02/2025 [...] by Flakita Purcell M.D. TW: Report ID: [id number] Reading Location: [id number] us Brenton Steve MD IMG XR PROCEDURES F inal Result * ECG 12 lead (01/02/2025 7:43 AM CDT) 01/02/2025 7:43 AM CDT Narrative [facility] - 01/02/2025 12:21 PM CDT Vent Rate: 78 bpm RR Interval: 767 msec [place] Interval: 147 msec QRS Duration: 96 msec QT Interval: 342 msec QTC Interval: 375 msec P-R-T [place]: 47 - 29 - 30 degrees IMPRESSION: SINUS RHYTHM NORMAL ECG Electronically Signed By: Elvin Britton MD Brenton Steve MD ECG ORDERABLES Fin al Result Performing Organization Address City/[facility]/ZIP Co de Phone Number [facility] [employer] [facility] * Troponin T high-sensitivity series (baseline, 2hr, [...] MD LAB BLOOD ORDERABLE S Final Result Performing Organization Address City/[facility] Co de Phone Number [facility] [address] [facility] Department [place] [address] * eGFR (01/02/2025 7:31 AM CDT) eGFR [...] MD LAB BLOOD ORDERABLE S Final Result [facility] [address] [facility] Department [place] [address] * Differential, auto (01/02/2025 7:31 AM CDT) Neutrophil abs 3.78 1.50 - 6.50 K/cumm Imm gran abs 0.02 0.00 - 0.10 K/cumm [facility] Lymphocyte abs 1.00 0.80 - 3.30 K/cumm [facility] Monocyte abs 0.45 0.20 - 0.80 K/cumm [facility] Eosinophil abs 0.01 0.00 - 0.50 K/cumm [facility] Basophil abs 0.03 0.00 - 0.10 K/cumm [facility] Neutrophil pct 71.4 % [facility] Comment: Interpretive Data Percent cell count reference ranges are not reported, since discordance with absolute values may lead to misinterpretation of CBC data. Current Interpretive Data was last revised on 2017. Imm gran pct 0.4 % [facility] Comment: Interpretive Data Percent cell count reference ranges are not reported, since discordance with absolute values may lead to misinterpretation of CBC data. Current Interpretive Data was last revised on 2017. Lymphocyte pct 18.9 % [facility] Comment: Interpretive Data Percent cell count reference ranges are not reported, since discordance with absolute values may lead to misinterpretation of CBC data. Current Interpretive Data was last revised on 2017. Monocyte pct 8.5 % [facility] ([place] Comment: Interpretive Data [...] MD LAB BLOOD ORDERABLE S Final Result [facility] [address] [facility] Department of Laboratories [place], [place] [id number] * (ABNORMAL) CBC with auto differential (01/02/2025 [...] S Final Result [facility] [address] [facility] Department [place] [address] * (ABNORMAL) Comprehensive metabolic panel (01/02/2025 7:31 [...] classification and Diagnosis of Diabetes Diabetes Care 202; 46: S19-S40. Current interpretive data was last [...] S Final Result [facility] [address] [facility] Department [place] [address] * CT KUB Stone WO Contrast (2024 [...] Amrit Crow M.D. MM: MM Report ID: [id number] Reading Location: [id number] Procedure Note Amrit Crow MD - 2024 [...] Amrit Crow M.D. MM: MM Report ID: [id number] Reading Location: [place] [address] PROCEDURES Final Resu lt * (ABNORMAL) [...] tendency for uric acid stone formation. Source: [facility] [employer] Current Interpretive Data was last revised on [...] GENERAL O RDERABLES Final Result [facility] [address] [facility] Department [place] [address] from Last 3 Months Insurance [facility] Care Teams Religion Professor Relationship Specialty Start Date End Date No, Physician PCP - General 10/17/24
[2025-01-28 11:04] VITALS: BP 143/80; PULSE 96; RESP 20; TEMP 36.9; O2SAT 99
--- NOTE | 2025-01-28 11:12 | ED.URI ---
HPI - URI/Sore Throat General Chief Complaint: Upper Respiratory Infection Stated Complaint: cold/chest tight patient presents to the [facility] with complaints of chest tightness, chest congestion, cough, minimal shortness of breath, and some nasal congestion that began yesterday. Patient reports taking Mucinex DM and Sudafed with the last of his albuterol inhaler with some relief of symptoms. Patient noted having bronchitis in the past and this feels similar. No known sick contacts. Denies fever, chills, body aches, dizziness, ear pain, sore throat, nausea, vomiting, diarrhea. Related Data Allergies Allergy/AdvReac Type Severity Reaction Status Date / Time No Known Allergies Allergy Verified 01/28/25 11:08 Review of Systems Constitutional: Constitutional: Reports as per HPI, Denies chills, Denies fatigue, Denies fever(s) and Denies weakness Eyes: Eyes: Reports no additional eye complaints ENT: Reports as per HPI, Denies vertigo, Denies dizziness, Reports nasal congestion and Denies sore throat Cardiovascular: Cardiovascular: Reports no additional cardiovascular complaints, Denies chest pain, Denies rapid heart rate, Denies radiating jaw, neck or arm pain and Denies slow heart rate Respiratory: Respiratory: Reports as per HPI, Reports chest congestion, Reports cough, Reports dyspnea and Denies wheezing Gastrointestinal: Gastrointestinal: Reports no additional gastrointestinal complaints Genitourinary: Genitourinary: Reports no additional male genitourinary complaints Musculoskeletal: Musculoskeletal: Reports no additional musculoskeletal complaints Integumentary/Breasts: Skin/Breast: Reports system reviewed and no additional complaints, except as docu Neurologic: Reports as per HPI and Denies headache(s) Psychiatric: Psychiatric: Reports no additional psychiatric complaints Endocrine: Endocrine: Reports no additional endocrine complaints Hematologic/Lymphatic: Hematologic/Lymphatic: Reports no additional hematologic/lymphatic complaints Allergic/Immunologic: Allergic/Immunologic: Reports no additional allergic/immunologic complaints Exam Const: General: healthy appearing and no acute distress Nutritional Appearance: well nourished Orientation/consciousness: patient oriented x3 Limitations: no limitations HENMT: Head: normal to inspection Ears: external ears normal and TM's normal bilaterally Face/Nose/Sinus: Normal external nose present and Normal nares present Face and sinus: normal facial exam Mouth: Yes Normal oral and palatal mucosa present and Yes lip normal Throat: posterior oropharynx normal Neck: Neck: no lymphadenopathy Resp: Effort & Inspection: normal respiratory effort Auscultation: diminished lung sounds diffuse Cardio: Rate: regular rate Rhythm: regular rhythm Skin: General skin exam: normal color Rashes: no rashes Wounds: no wounds Neuro: General: patient oriented x3 Speech: normal speech Gait exam (Neuro): Normal gait present Psych: Mental Status: mental status grossly normal Affect: normal affect Attitude: cooperative Course Course Level of Care: Express Care Visit Vital Signs Vital signs: Vital Signs Temperature 98.5 F 01/28/25 11:04 Pulse Rate 96 01/28/25 11:04 Respiratory Rate 20 01/28/25 11:04 Blood Pressure 143/80 H 01/28/25 11:04 Pulse Oximetry 99 01/28/25 11:04 Oxygen Delivery Room Air 01/28/25 11:04 Temperature 98.5 F 01/28/25 11:04 Pulse Rate 96 01/28/25 11:04 Respiratory Rate 20 01/28/25 11:04 Blood Pressure 143/80 H 01/28/25 11:04 Pulse Oximetry 99 01/28/25 11:04 Oxygen Delivery Room Air 01/28/25 11:04 MDM - URI/Sore Throat MDM Narrative Medical decision making narrative: Discharge instructions reviewed with patient, as well as provided in writing per nursing staff. The instructions also include specific and strict return/GO TO THE ER as well as f/u information. All questions have been answered, and the patient deny any further questions with discharge and discharge plan. Differential Diagnosis Differential diagnosis: Likely upper respiratory infection, croup, otitis media, viral infection, bronchitis, influenza and pharyngitis Medical Records Attestation: I reviewed the patient's medical records. Discharge Plan Discharge Clinical Impression: Bronchitis Patient Disposition: Home Condition: Stable Instructions: Antibiotic Form, Acute Bronchitis (ED), Chronic Bronchitis (ED) Additional Instructions: Return to urgent care or go to the ER for new or worsening symptoms. Continue to take Tylenol or Motrin for pain. Use a humidifier or vaporizer at night. Take Medications as prescribed. Drink plenty of water. 8-10 glasses per day. Use flonase 2 times per day for 5 days then as needed Take mucinex 2 times per day and be sure to take with 8oz of water. Follow up with Primary provider if not getting better. Return to Express Care or go to the ER for new or worsening symptoms. Take the full dose of steroids as directed to decrease inflammation and open up sinus and airway Increase water intake to 8-10 glasses per day Use the albuterol inhaler as needed every 4 hours for cough, shortness of breath, and wheezing. Patient Language: [place] Prescriptions: New benzonatate 200 mg capsule 200 mg PO TID PRN (Reason: cough) Qty: 30 0RF prednisone 50 mg tablet 50 mg PO DAILY Qty: 7 0RF albuterol sulfate [Ventolin HFA] 90 mcg/actuation HFA aerosol inhaler 2 puff inhalation QID PRN (Reason: shortness of breath or wheezing) Qty: 8.5 0RF Follow-up/Referrals: PHYSICIAN,HEALTHCARE ANALYST [Primary Care Provider] - Time of Disposition: 11:16
== END 2025-01-28 11:32 | disposition home or self-care (01) ==
PROVIDERS: Emergency Provider Nurse Practitioner Family
DX: J40 Bronchitis, not specified as acute or chronic (principal)
CPT/HCPCS: 99203; G0463